=== PATIENT | male | born 1980 | race Caucasian/White ===

== ENCOUNTER 2018-08-28 06:58 | Emergency (ER) | payer OTHER ==
[~2018-08-28] VITALS: Ht 175.3 cm; Wt 72.6 kg
[~2018-08-28 06:58] MED LIST: MULTIVITAMINS1 EAC7
[2018-08-28 07:31] LABS: ABSOLUTE BASOPHILS 0.1 thou/uL (0.0-0.2); ABSOLUTE EOSINOPHILS 0.2 thou/uL (0.0-0.7); ABSOLUTE LYMPHOCYTES 2.6 thou/uL (0.8-5.3); ABSOLUTE MONOCYTES 0.5 thou/uL (0.0-1.2); ABSOLUTE NEUTROPHILS 2.6 thou/uL (1.6-8.1); BASOPHILS 1.1 %; EOSINOPHILS 2.6 %; HEMATOCRIT 44.7 % (42.0-52.0); HEMOGLOBIN 15.3 gm/dL (14.0-18.0); LYMPHOCYTES 43.7 %; MCH 30.3 pg (26.0-34.0); MCHC 34.2 g/dL (28.0-37.0); MCV 88.6 fL (80.0-100.0); MONOCYTES 9.2 %; MPV 8.5 fl. (7.2-11.1); NUCLEATED RBCS 0 /100WBC; PLATELET COUNT* 215 thou/uL (150-400); POLYS 43.4 %; RBC 5.05 mil/uL (4.50-6.00); RDW-CV 13.1 % (10.5-14.5); WBC 5.9 thou/uL (4.0-11.0)
[2018-08-28 07:39] LABS: PROTIME 10.3 Seconds (9.20-11.50)
[2018-08-28 07:46] LABS: ANION GAP 8 mmol/L (7-16); BUN 15 mg/dL (7-18); CALCIUM 9.6 mg/dL (8.5-10.1); CHLORIDE 104 mmol/L (98-107); CO2 28 mmol/L (21-32); CREATININE 1.1 mg/dL (0.6-1.3); GLUCOSE 117 mg/dL (70-99); POTASSIUM 3.5 mmol/L (3.5-5.1); SODIUM 140 mmol/L (136-145)
[2018-08-28 07:55] LABS: ALBUMIN 4.3 g/dL (3.4-5.0); ALKALINE PHOSPHATASE 74 U/L (46-116); SGOT 19 U/L (15-37); SGPT 29 U/L (30-65); TOTAL BILIRUBIN 0.8 mg/dL (<0.1-1.0); TOTAL PROTEIN 7.8 g/dL (6.4-8.2); TROPONIN-I LEVEL <0.06 ng/mL (<0.06)
[2018-08-28 08:15] VITALS: BP 153/92
--- NOTE | 2018-08-28 17:18 | EKG ---
[place] [address] ELECTROCARDIOGRAM REPORT Name: YAW HUTTON Room: [facility]#: [id number] Admission: 08/28/18 Attend Phys: Discharge: 08/28/18 Date of : 78 Report #: [id number] THIS REPORT FOR: //name// [facility] ED Test Date: 2018-08-28 Test Time: 07:01:29 Pat Name: YAW HUTTON Department: Room: Gender: M Technical Project Manager: : 1980 Requested By: [place] Mtz Order Number: [id number] MD: Yaw Honeycutt Measurements Intervals Evans Rate: 124 P: 64 NC: 143 QRS: 48 QRSD: 107 T: 28 QT: 320 QTc: 460 Interpretive Statements Sinus tachycardia Anterior infarct, old possible Minimal ST depression, lateral leads Baseline wander in lead(s) I,aVR No previous ECG available for comparison Electronically Signed On 08-28-2018 17:18:13 CDT by Yaw Honeycutt [email or web address] <ELECTRONICALLY SIGNED> By: Yaw Honeycutt MD, [facility] 08/28/18 1718 0701 0 Yaw Honeycutt MD, FACC /EPI
== END 2018-08-28 08:15 | disposition home or self-care (01) ==
LOC: M.ERS 06:58
PROVIDERS: Family Medicine
DX: R20.2 Paresthesia of skin (principal)